=== PATIENT | male | born 1985 | race Caucasian/White ===

== ENCOUNTER → 2016-06-04 | Outpatient (CLI) | payer BC ==
[2016-06-07 06:38] LABS: E001-IGE CAT DANDER <0.10 kU/L (Class 0); E005-IGE DOG DANDER <0.10 kU/L (Class 0); E072-IGE MOUSE URINE <0.10 kU/L (Class 0); F026-IGE PORK <0.10 kU/L (Class 0); F027-IGE BEEF <0.10 kU/L (Class 0); F052-IGE CHOCOLATE/COCOA <0.10 kU/L (Class 0); F092-IGE BANANA 0.12 kU/L (Class 0/I); F096-IGE AVOCADO 0.15 kU/L (Class 0/I); F299-IGE SWEET CHESTNUT 0.43 kU/L (Class I); G006-IGE TIMOTHY GRASS 7.75 kU/L (Class IV); G010-IGE JOHNSON GRASS 4.11 kU/L (Class IV); G017-IGE BAHIA GRASS 7.04 kU/L (Class IV); I100-IGE COCKROACHAMERICAN <0.10 kU/L (Class 0); K082-IGE LATEX 0.11 kU/L (Class 0/I); M001-IGE PENICILLIUM CHRYSOGEN <0.10 kU/L (Class 0); M002-IGE CLADOSPORIUM HERBARUM <0.10 kU/L (Class 0); M003-IGE ASPERGILLUS FUMIGATUS <0.10 kU/L (Class 0); M004-IGE MUCOR RACEMOSUS <0.10 kU/L (Class 0); M006-IGE ALTERNARIA ALTERNATA <0.10 kU/L (Class 0); M010-IGE STEMPHYLIUM HERBARUM <0.10 kU/L (Class 0); T001-IGE MAPLE/BOX ELDER 0.33 kU/L (Class I); T003-IGE BIRCH SILVER 0.61 kU/L (Class II); T006-IGE CEDAR MOUNTAIN 0.11 kU/L (Class 0/I); T007-IGE OAK WHITE 0.62 kU/L (Class II); T008-IGE ELM AMERICAN (WHITE 0.91 kU/L (Class II); T011-IGE MAPLE LEAF SYCAMORE 0.22 kU/L (Class 0/I); T041-IGE HICKORY WHITE 2.28 kU/L (Class III); T211-IGE SWEET GUM 0.31 kU/L (Class 0/I); W001-IGE RAGWEED SHORT/COMMO 0.15 kU/L (Class 0/I); W006-IGE MUGWORT 0.14 kU/L (Class 0/I); W009-IGE PLANTAIN ENGLISH 0.15 kU/L (Class 0/I); W014-IGE PIGWEED ROUGH 0.33 kU/L (Class I); W018-IGE SHEEP SORREL(DOCK) 0.28 kU/L (Class 0/I); W020-IGE NETTLE 0.44 kU/L (Class I)
[2016-06-08 06:56] LABS: F084-IGE KIWI FRUIT <0.10 kU/L (Class 0)
== END ==
LOC: OD 16:28
PROVIDERS: ATTEND Otolaryngology
DX: J30.9 Allergic rhinitis, unspecified (principal)
CPT/HCPCS: 36415; 86003

== ENCOUNTER → 2016-08-11 | Outpatient (CLI) | payer BC | LOC: RAD 14:56 | PROVIDERS: ATTEND Specialist | DX: M54.12 Radiculopathy, cervical region (principal) | CPT/HCPCS: 72141 ==